=== PATIENT | female | born 1970 | race Caucasian/White ===

== ENCOUNTER → 2019-05-14 12:23 | Outpatient (CLI) | payer OTHER | END | disposition home or self-care (01) | LOC: D.MRI 12:23 | PROVIDERS: ATTEND Nurse Practitioner Family | DX: M25.511 Pain in right shoulder (principal); G89.29 Other chronic pain ==

== ENCOUNTER → 2019-06-09 11:01 | Outpatient (CLI) | payer OTHER | END | disposition home or self-care (01) | LOC: D.MRI 11:01 | PROVIDERS: ATTEND Nurse Practitioner Family | DX: M54.12 Radiculopathy, cervical region (principal) ==

== ENCOUNTER 2019-07-03 05:27 | Day surgery (SDC) | payer OTHER ==
[2019-07-02 09:11] LABS: MCH 30.2 pg (26.0-34.0); MCHC 35.7 g/dL (31.0-37.0); MCV 84.7 fL (80.0-100.0); MEAN PLATELET VOLUME 9.5 fL (7.4-10.4); RBC 4.96 10x6/uL (4.00-5.40); RDW 13.1 % (11.5-14.5); WBC 9.2 10x3/uL (4.8-10.8)
[~2019-07-03] VITALS: Ht 152.4 cm; Wt 78.6 kg
[~2019-07-03 05:27] MED LIST: AMBIEN5 MG PO; ATIVAN0.5 MG PO; BUPROPION HCL75 MG PO; ZANAFLEX4 MG PO
[2019-07-03] MEDS ORDERED: IBUPROFEN800 MG (05:48)
[2019-07-03] MEDS ORDERED: TROSPIUM CHLORI60 MG PO (05:49)
[2019-07-03] MEDS ORDERED: MIRALAX17 GM PO (06:11)
[2019-07-03 06:21] VITALS: BP 118/63; BMI 32.2
--- NOTE | 2019-07-03 08:42 | NUR ---
PATIENT PLACED IN MARTINES HEADREST BY DR EMERSON THEN PLACED PRONE, ALL AREAS PADDED SECURED WITH NO IMPINGEMENTS, DR EMERSON PRESENT AND ASSISTING ON POSITION, TWORJACQUES
[2019-07-03 11:29] VITALS: BP 119/84; Ht 152.4 cm; Wt 78.6 kg
--- NOTE | 2019-07-03 12:40 | NUR ---
TO ROOM 2217 FROM ICU VIA BED. PT IS WITHOUT DISTRESS.DENIES PROBLEMS SWOLLING. DRESSING POST NECK HAS SMALL AMOUNT OD RED DRAINAGE NOTED.RED DRAINAGE NOTED TO LEFT SIDE OF HEAD. STITCH NOTED TO RIGHT SIDE OF HEAD.ORIENTATION TO ROOM.CALL LIGHT IN REACH.
--- NOTE | 2019-07-03 14:30 | NUR ---
WITHOUT DISTRESS.TOLERATING FLD. NO TROUBLE WITH SWALLOWING
--- NOTE | 2019-07-03 16:30 | NUR ---
DR EMERSON SPOKE WITH RE..SUTURE IN RIGHT SIDE OF HEAD.
--- NOTE | 2019-07-03 16:55 | NUR ---
PT HAS BEEN RESTING AFTER PAIN MEDS ORDERED PER JAN.SHE IS WITHOUT SIGNS OF BLEEDING OR PROBLEMS SWALLOWING.MONITOR
[2019-07-03 17:23] VITALS: BP 125/80
--- NOTE | 2019-07-03 18:52 | NUR ---
SLEEPING ON LEFT SIDE,WITHOUT DISTRESS.DRESSING POSTERIOR NECK CDI. CONT PLAN OF CARE
--- NOTE | 2019-07-03 20:00 | NUR ---
UP AD [place] IN ROOM. ALERT,ORIENTED. DRESSING TO RIGHT SHOULDER INTACT WITHOUT DRAINAGE NOTED. SHOULDER IMMOBILIZER INTACT.SL TO LEFT HAND WITHOUT REDNESS OR EDEMA NOTED. CL IN REACH
--- NOTE | 2019-07-03 20:30 | NUR ---
WATCHING TV QUEITLY WITH NO DISTRESS NOTED. RESP UNALBORED. IV INFUSING TO RIGHT HAND WITHOUT REDNESS OR EDEMA NOTED. DRESSING TO POSTERIOR NECK INTACT WITH NO DRAINAGE NOTED.
[2019-07-03 21:10] VITALS: BP 111/67
--- NOTE | 2019-07-04 05:00 | NUR ---
I have reviewed this patient and I concur with the Shift Assessment completed by the Licensed Practical Nurse today this shift.
[2019-07-04 05:38] VITALS: BP 100/54
[2019-07-04 09:40] VITALS: BP 107/65
--- NOTE | 2019-07-04 11:00 | NUR ---
PATIENT DRESSING TO NECK CHANGED AFTER SHOWER. INCISION CLEAN AND DRY WITH NITISH INTACT. IV INTACT WITH FAMILY AT BEDSIDE. CALL LIGHT WITHIN REACH.
[2019-07-04 13:03] VITALS: BP 117/78
[2019-07-04] MEDS ORDERED: HYDROCODON-ACE1 EA10 PO (14:01)
--- NOTE | 2019-07-04 14:30 | NUR ---
PATIENT RECIEVED DC INSTRUCTIONS. VERBALIZED UNDERSTANDING. RECIEVED PRESCRIPTION. IV REMOVED WITH CATH TIP INTACT. NO QUESTIONS AT THIS TIME. WAITING FOR WC FOR DC.
--- NOTE | 2019-08-01 13:49 | OP ---
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 PROCEDURE: Right posterior cervical foraminotomy at C5-C6 and C6-C7. SURGEON: Noelle Krishnan MD. DESCRIPTION AND TECHNIQUE: After induction of general endotracheal anesthesia, the patient was placed in Joe head pin and was rolled prone on chest and hip rolls. The neck was prepped and draped in usual sterile fashion. Fluoroscopic x-ray and a spinal needle localized the C5-C6 interspace on the right side. After infiltration of 1:100,000 epinephrine and 1% lidocaine, a skin incision was carried out from the spinous process of C5-C7. Then, using Bovie cautery, the ligamentum nuchi was incised and the facia was incised as well. The spinous processes and lamina at C5, C6 and C7 were exposed in a subperiosteal manner. Next, the C5-C6 interspace was identified with fluoroscopic x-ray and a nerve hook. A microscope and Midas Raji drill were used to perform a posterior cervical foraminotomy, medial facetectomy at C5-C6 and C6-C7. Hypertrophied ligamentum flavum was removed with Cloward rongeurs. Following this, the C6 and C7 nerve roots were completely decompressed. Meticulous hemostasis was maintained throughout the wound. The wound was irrigated with copious amounts of Ancef irrigant solution. The fascia was closed with 2-0 Vicryl suture, the subdermal layer was closed with 3-0 Vicryl suture. The skin was closed with tigre. A sterile dressing was applied to the wound. The patient was awakened in good condition and taken to recovery. All counts were reported as correct. Estimated blood loss was minimal. TRANSINT:[id number] Voice Confirmation ID: [id number] DOCUMENT ID: [id number] NOELLE KRISHNAN MD at 1349 CC: [id number] DICTATION DATE: 07/03/19 1019 EQUIPMENT TESTER: 07/03/19 1337 [facility] 07/04/19 [place] [address]
== END 2019-07-04 15:13 | disposition home or self-care (01) ==
LOC: OBSVTIME → D.SDCHOLD 05:27 → D.OPS 05:27 → D.MS 05:27 → D.SDCHOLD 07:30 → EDSTATUS 07:30 → OBSVTIME 10:15 → D.ICU 10:47 → D.SDCHOLD 10:47 → D.ICU 12:28 → D.MS 12:28 → D.OPS 07-04 15:13
PROVIDERS: Anesthesiology; ATTEND Neurological Surgery
DX: M48.02 Spinal stenosis, cervical region (principal); Z01.812 Encounter for preprocedural laboratory examination

== ENCOUNTER 2019-09-26 05:13 | Day surgery (SDC) | payer OTHER ==
[~2019-09-26] VITALS: Ht 152.4 cm; Wt 73.9 kg
[~2019-09-26 05:13] MED LIST changes: +HYDROCODON-ACE1 EA10 PO; +IBUPROFEN800 MG; +MIRALAX17 GM PO; +TROSPIUM CHLORI60 MG PO
[2019-09-26 05:39] LABS: HEMATOCRIT 39.6 % (36.0-48.0); HEMOGLOBIN 13.4 g/dL (12-16); MCH 29.1 pg (26.0-34.0); MCHC 33.8 g/dL (31.0-37.0); MCV 86.1 fL (80.0-100.0); RBC 4.6 10x6/uL (4.00-5.40); RDW 13.1 % (11.5-14.5); WBC 5.9 10x3/uL (4.8-10.8)
[2019-09-26 06:38] VITALS: BP 128/70; Ht 152.4 cm; Wt 73.9 kg
[2019-09-26] MEDS ORDERED: OXYCODONE HCL5 M1 PO (10:26)
[2019-09-26] MEDS ORDERED: VISTARIL50 MG PO (10:27)
--- NOTE | 2019-09-26 11:33 | NUR ---
1110 3 SHOULDER BANDAIDS NOTED. 2 OUT OF 3 DRESSINGS HAVE A SMALL AMOUNT OF BRIGHT RED BLOOD. RIGHT ARM IN SLING. ICE PACK TO RIGHT SHOULDER.
--- NOTE | 2019-09-26 12:42 | NUR ---
1200 IV DC'D. CATHETER TIP INTACT. NO BLEEDING AT SITE. BANDAID APPLIED. PT READY TO GO HOME. NO INCREASED BLEEDING ON SHOULDER DRESSINGS. PT DENIES PAIN. GOOD CIRCULATION TO RUE. RIGHT ARM IN SLING AND IN PROPER POSITION.
--- NOTE | 2019-09-26 12:45 | OP ---
PATIENT NAME: LISA RUVALCABA MEDICAL RECORD: [id number] :72 LOCATION:[facility] ADMISSION DATE: SURGEON: DEVIN CRUZ DO DATE OF OPERATION: 09/26/2019 PROCEDURES PERFORMED: Right shoulder arthroscopy with subacromial decompression, distal clavicle excision, labral debridement, biceps tenodesis, and rotator cuff repair. PREOPERATIVE DIAGNOSES: Right shoulder subacromial impingement, AC joint arthritis, SLAP tear, and partial-thickness rotator cuff tear. POSTOPERATIVE DIAGNOSES: Right shoulder subacromial impingement, AC joint arthritis, SLAP tear, and partial-thickness rotator cuff tear. INDICATIONS: Ms. Lisa Ruvalcaba is a 48-year-old female, who has had right shoulder pain for quite some time. She has tried injections, all manner of nonoperative treatment. She had an MRI that showed a partial-thickness supraspinatus tear, and she had tried all manner of nonoperative treatment to treat this. When she got to the point where it was affecting her activities of living, she was tired of dealing with it. She wants something done surgically. I informed her we could put a Regeneten patch over it and not have to take all the way down. She was willing to try that and she is aware of the risks. Also, I told her I would look at her bicep tendon and her labrum and take her biceps and debride her labrum and do AC joint clean out, distal clavicle excision, and subacromial decompression. She is okay with that and aware of the risks including infection, bleeding, damage to nerve or vessel, need for further surgery, further tear of the rotator cuff, continued pain and she signed the consent. SURGEON: Devin Cruz DO DESCRIPTION OF PROCEDURE: The patient received a block by anesthesia in the preoperative area and was given 900 mg of clindamycin and taken to the operative suite, laid in the supine position, was sedated and LMA was placed. She was then put in the left lateral decubitus position with the right shoulder up. The right shoulder was then prepped and draped in sterile fashion. Time-out was performed. Everyone was in agreement with correct side, site, patient and procedure. Then began by inserting an 18-gauge spinal needle into the shoulder joint and insufflating it with 60 mL in each shoulder. Posterior portal was then established with 11 blade scalpel and the trocar was entered into the shoulder joint. The camera was then entered. A partial subscap tear was noted. The anterior portal was then established with an 18-guage spinal needle, 11 blade scalpel as well as a SLAP tear. The bicep was then cut and the labrum was debrided. The inferior gutter was noted to have no loose bodies. The cartilage was in good shape, and the subscapularis and infraspinatus tendons were not torn. There was a debridement done of the tear of the supraspinatus on the articular side and switched the scope to the bursal side and a lateral portal was established at that time with an 18-gauge spinal needle and 11-blade scalpel. A burner was brought in. I cleaned off the undersurface of the acromion as well as the AC joint. The subacromial decompression was done at the time of distal clavicle excision opening the AC joint up to approximately 7 mm. The spur was taken off the distal lateral acromion as well and then bursa was removed. There was a partial tear seen on the bursal side as well. This was marked with an 18-guage spinal needle and then a lateral incision was made over OPERATIVE REPORT [id number] LISA RUVALCABA the portal site, extended and careful dissection was made down to the tear. The Regeneten patch was then put in, stapled medially and then laterally with bone tigre and put in a very nice fit. The attention was then drawn to the biceps and an incision was made on the anterior humerus. Careful dissection was made to the long head of the biceps tendon. This was pulled out, whipstitched and then I took 2 anchors of the Biomet JuggerKnot bicep tendon anchors, put in to secure the bicep down to the humerus. Excess tendon and sutures were cut at that time. The sites were irrigated and closed with 2-0 Vicryl in inverted interrupted fashion and 4-0 Monocryl ran on the skin for the rotator cuff repair and bicep and then the portal sites with 4-0 Monocryl in inverted interrupted fashion. Dermabond glue was placed on all of them following that. The patient was then awakened and taken to recovery after being dressed with Telfa and Tegaderm and then placed in a sling, awakened and taken to recovery in stable condition. BLOOD LOSS: Minimal. COMPLICATIONS: None. TRANSINT:[id number] Voice Confirmation ID: [id number] DOCUMENT ID: [id number] DEVIN CRUZ DO at 1245 CC: [id number] DICTATION DATE: 09/26/19 1024 [employer] LAW CONSULTANT: 09/26/19 1101 [facility] [place] [id number] [place] [id number]
--- NOTE | 2019-09-26 12:46 | NUR ---
1230 COMPLETED DISCHARGE INSTRUCTIONS. PT STATES THAT DR CRUZ WAS GOING TO GIVE HIS CELL PHONE NUMBER TO HER IF SHE HAD PROBLEMS OVER THE WEEKEND. CONTACTED DR CRUZ AND HE VERIFIED. ADDITIONAL MD CONTACT INFORMATION (CELL PHONE) PROVIDED TO PT.
== END 2019-09-26 12:39 | disposition home or self-care (01) ==
LOC: D.OPS 05:13 → D.PAN 09:15 → D.OPS 09:15 → D.PAN 11:00 → D.OPS 11:00 → D.PAN 11:30 → D.OPS 12:39
PROVIDERS: Anesthesiology; ATTEND Orthopaedic Surgery
DX: M25.811 Other specified joint disorders, right shoulder (principal); M19.019 Primary osteoarthritis, unspecified shoulder; S43.439A Superior glenoid labrum lesion of unspecified shoulder, initial encounter; M75.100 Unspecified rotator cuff tear or rupture of unspecified shoulder, not specified as traumatic; X58.XXXA Exposure to other specified factors, initial encounter